=== PATIENT | female | born 1985 | race Caucasian/White ===

== ENCOUNTER 2023-12-26 04:21 | Emergency (ER) | payer SELFPAY ==
[2023-12-26] VITALS (7 sets, daily range): BP systolic 93–104; BP diastolic 45–61; BMI 21.4
--- NOTE | 2023-12-26 05:10 | ED.GENMED ---
History of Present Illness
<Kennedy Sandoval DO - Last Filed: 12/26/23 07:35>
General
Chief Complaint: Breathing Problem
Source: patient
Exam Limitations: none
Time Seen by Provider: 12/26/23 05:05
Nursing documentation reviewed up to this point in time: agreed with
Travel History
Have you had any contact with someone who has COVID-19?: No
Do you have any symptoms of coronavirus? Fever > 100 degrees, chills, cough, shortness of breath, sore throat, loss of taste or smell, muscle aches, or headache?: No
History of Present Illness
History of Present Illness:
38-year-old female brought in by police after she was sent through the [facility] intake unit for low pulse oximetry reading. This was at the time of the initial intake assessment. Patient had no complaints of respiratory distress.
Patient states that she has been having left flank pain and difficulty urinating for the last few days. Denies fever, chills, nausea or vomiting. Reports no chest pain or shortness of breath
Review of Systems
<Kennedy Sandoval DO - Last Filed: 12/26/23 07:35>
Review of Systems
Allergies reviewed?: Yes
All Other Systems: ROS reviewed and negative except as documented in HPI and ROS
Constitutional: Reports no symptoms
EENT: Reports no symptoms
Respiratory: Reports no symptoms
Cardiac: Reports no symptoms
ABD/GI: Denies abdominal pain
: Reports frequency, flank pain and urgency; Denies dysuria
Musculoskeletal: Reports no symptoms
Skin: Reports no symptoms
Neurological: Reports no symptoms
Endocrine: Reports no symptoms
Hematologic/Lymphatic: Reports no symptoms
Psychiatric: Reports no symptoms
Phy Exam
<Kennedy Sandoval DO - Last Filed: 12/26/23 07:35>
General Physical Exam
General Presentation: well appearing and no apparent distress
General Skin: warm and dry
General Habitus: normal
General Mental: alert
General Hydration: appears well hydrated
ENT Exam
ENT Exam: EOMI, pharynx normal, neck supple and normocephalic
Eye Exam
Eye Exam: PERRL, cornea clear and conjunctiva normal
Cardiovascular Exam
Cardiovascular Exam: regular rate/rhythm, no edema, no murmur and normal peripheral pulses
Pulmonary Exam
Pulmonary Exam: lungs clear, no respiratory distress, no rales, no crackles, no rhonchi, no stridor, no wheezing and no cough
Gastrointestinal Exam
Gastrointestinal Exam: normal bowel sounds, non tender, soft, no organomegaly, no pulsatile mass and non distended
Neurological Exam
Neurological Exam: alert, oriented x3, no motor deficits and speech normal
Musculoskeletal Exam
Musculoskeletal Exam: full ROM, no edema and back tenderness (Left CVA tenderness to palpation)
Skin Exam
Skin Exam: normal color, warm/dry, no rash and no petechia
Psychiatric Exam
Psychiatric Exam: normal mood/affect
Course
Naveenlt;Kennedy Sandoval, DO - Last Filed: 12/26/23 07:35>
Orders/Labs/Results
Orders:
Orders
12/26/23 05:07
CXR2 [CR Chest - 2 Views ] Urgent
Comment:
Reason For Exam: Low O2 stat
12/26/23 05:08
0.9% Sodium Chloride 1000 ml [Nss] 1,000 ml IV BOLUS
12/26/23 05:09
Electrocardiogram (*1) Stat
Reason for Study: Other
Other Reason for Exam: r/o kidney stone
CT Abd/pel Without Iv Or Oral Urgent
Comment:
Reason For Exam: left flank pain
EKG- Treatment ONCE
Test Result ONCE
12/26/23 05:56
Complete Blood Count/With Diff Urgent
Comprehensive Metabolic Panel Urgent
HCG, Serum Qualitative Screen Urgent
Lipase Urgent
Urinalysis Reflex To Culture Urgent
Date Specimen was Collected: 12/26/23
Time Specimen was Collected: 05:33
Urine Microscopic Reflex Cult Urgent
Urine Culture Urgent
WALTER Source: U
Specimen Description:
Date Specimen was Collected: 12/26/23
Time Specimen was Collected: 05:33
12/26/23 08:56
Cephalexin Monohydrate [Keflex] 500 mg PO NOW STA
Abnormal Lab Results
12/26/23
05:56
WBC 13.3 H 10^3/uL
(4.8-10.8)
Hgb 11.7 L g/dL
(12.0-16.0)
Hct 36.7 L %
(37.0-47.0)
MCV 77.8 L fL
(81.0-99.0)
MCH 24.8 L pg
(27.0-31.0)
MCHC 31.9 L g/dL
(33.0-37.0)
RDW 16.8 H %
(11.5-14.5)
MPV 10.9 H fL
(7.4-10.4)
Abs Immat Gran (auto) 0.1 H 10^3/uL
(0-0.05)
Absolute Neuts (auto) 10.8 H 10^3/uL
(1.4-6.5)
Absolute Monos (auto) 1.0 H 10^3/uL
(0.1-0.6)
Neutrophils % 81.2 H %
(42.2-75.2)
Lymphocytes % 10.0 L %
(20.5-51.1)
Sodium 131 L mmol/L
(135-145)
Chloride 94 L mmol/L
(98-107)
BUN 22 H mg/dl
(7-17)
Urine Ketones Trace A
(Negative)
Ur Occult Blood Reflex 3+ A
(Negative)
Urine Bilirubin 1+ A
(Negative)
Urine Urobilinogen 3+ A
(Neg - 1+)
Leukocyte Esterase Rfl 2+ A
(Negative)
Urine RBC 3-6 A /HPF
(0-2)
Urine WBC (Reflex) >100 A /HPF
(0-5)
Urine Bacteria (Reflex) Many A
(Negative)
12/26/23 05:56
12/26/23 05:56
Vital Signs
Initial and Last Documented VS:
Initial Vital Signs
Temp Pulse Resp BP Pulse Ox
97.9 F 65 17 97/59 100
12/26/23 04:23 12/26/23 04:23 12/26/23 04:23 12/26/23 04:23 12/26/23 04:23
Last Documented Vital Signs
Temp Pulse Resp BP Pulse Ox
97.9 F 74 21 100/52 100
12/26/23 04:23 12/26/23 09:00 12/26/23 09:00 12/26/23 09:00 12/26/23 09:00
<Romie Walter, DO - Last Filed: 12/26/23 09:03>
Orders/Labs/Results
Orders:
Orders
12/26/23 05:07
CXR2 [CR Chest - 2 Views ] Urgent
Comment:
Reason For Exam: Low O2 stat
12/26/23 05:08
0.9% Sodium Chloride 1000 ml [Nss] 1,000 ml IV BOLUS
12/26/23 05:09
Electrocardiogram (*1) Stat
Reason for Study: Other
Other Reason for Exam: r/o kidney stone
CT Abd/pel Without Iv Or Oral Urgent
Comment:
Reason For Exam: left flank pain
EKG- Treatment ONCE
Test Result ONCE
12/26/23 05:56
Complete Blood Count/With Diff Urgent
Comprehensive Metabolic Panel Urgent
HCG, Serum Qualitative Screen Urgent
Lipase Urgent
Urinalysis Reflex To Culture Urgent
Date Specimen was Collected: 12/26/23
Time Specimen was Collected: 05:33
Urine Microscopic Reflex Cult Urgent
Urine Culture Urgent
WALTER Source: U
Specimen Description:
Date Specimen was Collected: 12/26/23
Time Specimen was Collected: 05:33
12/26/23 08:56
Cephalexin Monohydrate [Keflex] 500 mg PO NOW STA
Abnormal Lab Results
12/26/23
05:56
WBC 13.3 H 10^3/uL
(4.8-10.8)
Hgb 11.7 L g/dL
(12.0-16.0)
Hct 36.7 L %
(37.0-47.0)
MCV 77.8 L fL
(81.0-99.0)
MCH 24.8 L pg
(27.0-31.0)
MCHC 31.9 L g/dL
(33.0-37.0)
RDW 16.8 H %
(11.5-14.5)
MPV 10.9 H fL
(7.4-10.4)
Abs Immat Gran (auto) 0.1 H 10^3/uL
(0-0.05)
Absolute Neuts (auto) 10.8 H 10^3/uL
(1.4-6.5)
Absolute Monos (auto) 1.0 H 10^3/uL
(0.1-0.6)
Neutrophils % 81.2 H %
(42.2-75.2)
Lymphocytes % 10.0 L %
(20.5-51.1)
Sodium 131 L mmol/L
(135-145)
Chloride 94 L mmol/L
(98-107)
BUN 22 H mg/dl
(7-17)
Urine Ketones Trace A
(Negative)
Ur Occult Blood Reflex 3+ A
(Negative)
Urine Bilirubin 1+ A
(Negative)
Urine Urobilinogen 3+ A
(Neg - 1+)
Leukocyte Esterase Rfl 2+ A
(Negative)
Urine RBC 3-6 A /HPF
(0-2)
Urine WBC (Reflex) >100 A /HPF
(0-5)
Urine Bacteria (Reflex) Many A
(Negative)
12/26/23 05:56
12/26/23 05:56
Vital Signs
Initial and Last Documented VS:
Initial Vital Signs
Temp Pulse Resp BP Pulse Ox
97.9 F 65 17 97/59 100
12/26/23 04:23 12/26/23 04:23 12/26/23 04:23 12/26/23 04:23 12/26/23 04:23
Last Documented Vital Signs
Temp Pulse Resp BP Pulse Ox
97.9 F 74 21 100/52 100
12/26/23 04:23 12/26/23 09:00 12/26/23 09:00 12/26/23 09:00 12/26/23 09:00
<Isidro Camarillo PA-C - Last Filed: 12/29/23 09:32>
Orders/Labs/Results
Orders:
Orders
12/26/23 05:07
CXR2 [CR Chest - 2 Views ] Urgent
Comment:
Reason For Exam: Low O2 stat
12/26/23 05:08
0.9% Sodium Chloride 1000 ml [Nss] 1,000 ml IV BOLUS
12/26/23 05:09
Electrocardiogram (*1) Stat
Reason for Study: Other
Other Reason for Exam: r/o kidney stone
CT Abd/pel Without Iv Or Oral Urgent
Comment:
Reason For Exam: left flank pain
EKG- Treatment ONCE
Test Result ONCE
12/26/23 05:56
Complete Blood Count/With Diff Urgent
Comprehensive Metabolic Panel Urgent
HCG, Serum Qualitative Screen Urgent
Lipase Urgent
Urinalysis Reflex To Culture Urgent
Date Specimen was Collected: 12/26/23
Time Specimen was Collected: 05:33
Urine Microscopic Reflex Cult Urgent
Urine Culture Urgent
WALTER Source: U
Specimen Description:
Date Specimen was Collected: 12/26/23
Time Specimen was Collected: 05:33
12/26/23 08:56
Cephalexin Monohydrate [Keflex] 500 mg PO NOW STA
Abnormal Lab Results
12/26/23
05:56
WBC 13.3 H 10^3/uL
(4.8-10.8)
Hgb 11.7 L g/dL
(12.0-16.0)
Hct 36.7 L %
(37.0-47.0)
MCV 77.8 L fL
(81.0-99.0)
MCH 24.8 L pg
(27.0-31.0)
MCHC 31.9 L g/dL
(33.0-37.0)
RDW 16.8 H %
(11.5-14.5)
MPV 10.9 H fL
(7.4-10.4)
Abs Immat Gran (auto) 0.1 H 10^3/uL
(0-0.05)
Absolute Neuts (auto) 10.8 H 10^3/uL
(1.4-6.5)
Absolute Monos (auto) 1.0 H 10^3/uL
(0.1-0.6)
Neutrophils % 81.2 H %
(42.2-75.2)
Lymphocytes % 10.0 L %
(20.5-51.1)
Sodium 131 L mmol/L
(135-145)
Chloride 94 L mmol/L
(98-107)
BUN 22 H mg/dl
(7-17)
Urine Ketones Trace A
(Negative)
Ur Occult Blood Reflex 3+ A
(Negative)
Urine Bilirubin 1+ A
(Negative)
Urine Urobilinogen 3+ A
(Neg - 1+)
Leukocyte Esterase Rfl 2+ A
(Negative)
Urine RBC 3-6 A /HPF
(0-2)
Urine WBC (Reflex) >100 A /HPF
(0-5)
Urine Bacteria (Reflex) Many A
(Negative)
12/26/23 05:56
12/26/23 05:56
Vital Signs
Initial and Last Documented VS:
Initial Vital Signs
Temp Pulse Resp BP Pulse Ox
97.9 F 65 17 97/59 100
12/26/23 04:23 12/26/23 04:23 12/26/23 04:23 12/26/23 04:23 12/26/23 04:23
Last Documented Vital Signs
Temp Pulse Resp BP Pulse Ox
97.9 F 74 21 100/52 100
12/26/23 04:23 12/26/23 09:00 12/26/23 09:00 12/26/23 09:00 12/26/23 09:00
<Kennedy Sandoval, - Last Filed: 12/26/23 07:35>
*Radiology
Radiology exam reviewed: preliminary read by ED provider
*Pulse Oximetry
Patient hypoxic: no
*Critical Care Note
Total Time (30-74mins, 75-104mins- exclusive of procedures): Not Applicable
<Romie Walter DO - Last Filed: 12/26/23 09:03>
Update Note
Update Note:
Care of patient was transitioned pending CT. CT shows evidence of cystitis which is confirmed with urinalysis. Will start Keflex. I discussed incidental findings such as likely ovarian cysts and hepatosplenomegaly. Discussed outpatient
follow-up. Apparently, the lead cargoman's supposed to be called before she is discharged. Will have bonus clerk call the lead cargoman. Patient is aware of this
<Isidro Camarillo PA-C - Last Filed: 12/29/23 09:32>
Update Note
Update Note:
Care of patient was transitioned pending CT. CT shows evidence of cystitis which is confirmed with urinalysis. Will start Keflex. I discussed incidental findings such as likely ovarian cysts and hepatosplenomegaly. Discussed outpatient
follow-up. Apparently, the lead cargoman's supposed to be called before she is discharged. Will have bonus clerk call the lead cargoman. Patient is aware of this
12/29/2023 0932 AM: called pt and left message regarding cefazolin resistance on UCx. Will need new abx
ED Attending Note
<Kennedy Sandoval, - Last Filed: 12/26/23 07:35>
-
Portions of this chart may have been created with voice recognition software.� Occasional wrong word or��sound alike� substitutions may have occurred due to the inherent limitations of voice recognition software.
Discharge Plan
Departure
Patient Disposition: [facility]
Date of Disposition: 12/26/23
Time of Disposition: 09:02
Patient with high blood pressure during this ER visit?: Yes
Condition: Good
Discharge Problem:
Cystitis
Instructions: Urinary Tract Infection, Adult ED
Prescriptions:
New
cephalexin 500 mg capsule
500 mg PO BID 7 Days Qty: 10 0RF
Referrals:
[facility] [Outside]
[facility] [Outside]
NONE,* [Family Provider] -
Activity Restrictions/Additional Instructions:
Please return for any worsening symptoms.
You may return at any time if you have further concerns.
Please follow up with your doctor at the first available appointment, preferably this week.
Please discuss the incidental findings on your CT.
Thank you for choosing [facility].
Interventions
Interventions:
*Risk Screen - Suicide Last Done: 12/26/23 04:23
*General Assessment Last Done: 12/26/23 04:23
*Neglect/Abuse Screening Last Done: 12/26/23 04:23
ED- Fall Risk Assessment Last Done: 12/26/23 04:48
*ED COVID-19 Vaccine History Last Done: 12/26/23 04:48
*Nursing Disposition Last Done: 12/26/23 09:19
ED- Cardiac Assessment Last Done: 12/26/23 04:48
ED- Pulmonary Assessment Last Done: 12/26/23 04:48
Discharge Date and Time
Discharge Date/Time: 12/26/23 09:36
Print Language: ALBANIAN
[2023-12-26] MEDS: NSS 1000 IV (06:09)
[2023-12-26 06:28] LABS: % Basophils 0.6 % (0-2); % Eosinophils 0.3 % (0-6); % Immature Granulocytes 0.4 % (0-0.5); % Monocytes 7.5 % (1.7-9.3); % Neutrophils 81.2 % (42.2-75.2); Absolute Basophils 0.1 10^3/uL (0-0.2); Absolute Immature Granulocytes 0.1 10^3/uL (0-0.05); Absolute Lymphocytes 1.3 10^3/uL (1.2-3.4); Absolute Neutrophils 10.8 10^3/uL (1.4-6.5); Hematocrit 36.7 % (37.0-47.0); Hemoglobin 11.7 g/dL (12.0-16.0); Mean Corp Hgb Conc. 31.9 g/dL (33.0-37.0); Mean Corpuscular Hgb 24.8 pg (27.0-31.0); Mean Corpuscular Volume 77.8 fL (81.0-99.0); Mean Platelet Volume 10.9 fL (7.4-10.4); Nucleated Red Blood Cells % 0 %; Platelet Count 306 10^3/uL (130-400); Red Blood Cell Count 4.72 10^6/uL (4.20-5.40); Red Cell Dist. Width 16.8 % (11.5-14.5); White Blood Cell Count 13.3 10^3/uL (4.8-10.8)
[2023-12-26 06:36] LABS: Urine Albumin Trace (Neg - Trace); Urine Bilirubin 1+ (Negative); Urine Character Slightly Cloudy (Clear); Urine Color Yellow; Urine Glucose Negative (Negative); Urine Ketone Trace (Negative); Urine Leukocyte 2+ (Negative); Urine Nitrite Negative (Negative); Urine Occult Blood 3+ (Negative); Urine Urobilinogen 3+ (Neg - 1+)
[2023-12-26 06:41] LABS: HCG, Serum Qualitative Screen Negative
[2023-12-26 06:43] LABS: ALT (SGPT) 23 U/L (0-35); AST (SGOT) 27 U/L (14-36); Albumin 3.7 g/dl (3.5-5.0); Alkaline Phosphatase 125 U/L (38-126); Blood Urea Nitrogen 22 mg/dl (7-17); Calcium 9.4 mg/dl (8.4-10.2); Carbon Dioxide 25 mmol/L (22-30); Chloride 94 mmol/L (98-107); Estimated Creatinine Clearance 87 ml/min; Glucose 96 mg/dl (70-99); Lipase 92 U/L (23-300); Potassium 4.2 mmol/L (3.5-5.1); Sodium 131 mmol/L (135-145); Total Bilirubin 1.1 mg/dl (0.2-1.3); Total Protein 7.6 g/dl (6.3-8.2); eGFR > 60.00
[2023-12-26 08:21] LABS: Urine Bacteria Many (Negative); Urine Mucus Few; Urine White Cell >100 /HPF (0-5)
[2023-12-26] MEDS: KEFLEX 500 MG PO (09:01)
== END 2023-12-26 09:36 ==
LOC: EMR 04:21
PROVIDERS: EMERGENCY PHYSICIAN Student in an Organized Health Care Education/Training Program
DX: N30.90 Cystitis, unspecified without hematuria (principal); R03.0 Elevated blood-pressure reading, without diagnosis of hypertension
CPT/HCPCS: 99285; 96360; 71046; 74176; 80053; 81003; 81015; 83690; 84703; 85025; 87077; 87086; 87186; 93005